=== PATIENT | female | born 1990 | race African-American/Black ===

== ENCOUNTER 2019-12-02 20:15 | Emergency (ER) | payer OTHER ==
[~2019-12-02] VITALS: Ht 160 cm; Wt 71.7 kg
[2019-12-02 21:40] LABS: COLOR YELLOW (YELLOW)
[2019-12-02 21:41] LABS: BILIRUBIN NEGATIVE; BLOOD NEGATIVE (NEGATIVE); CLARITY CLEAR (CLEAR); EPITHELIAL CELLS 16-20; GLUCOSE NEGATIVE; KETONE NEGATIVE; LEUKO ESTERASE NEGATIVE (NEGATIVE); NITRITE NEGATIVE (NEGATIVE); PH 6.5 (4.5-8.0)
[2019-12-02] MEDS ORDERED: CIPRO500 MG PO (21:53)
== END 2019-12-02 21:59 | disposition home or self-care (01) ==
LOC: ED 20:15
PROVIDERS: Emergency Medicine
DX: N75.0 Cyst of Bartholin's gland (principal)